=== PATIENT | male | born 1940 | race Caucasian/White ===

== ENCOUNTER 2024-11-28 06:49 | Inpatient (IN) | payer OTHER, MEDICARE ==
[2024-11-28] VITALS (11 sets, daily range): BP systolic 102–103; BP diastolic 51–56; PULSE 73–117; RESP 16–30; TEMP 97–97.8; O2SAT 87–98
[~2024-11-28] VITALS: Ht 180.3 cm; Wt 68.2 kg
--- NOTE | 2024-11-28 07:59 | ELECTROCARDIOGRAPH REPORT ---
[facility] Test Date: 2024-11-28 Test Time: 07:57:12 Pat Name: GEM NORIEGA Department: EMERGENCY ROOM Room: Gender: M Ct Scan Tech: SIMONA : 1940 Requested By: SILVIA RAVI Order Number: [id number] Reading MD: Measurements Intervals [place] Rate: 80 P: 0 WV: 0 QRS: 37 QRSD: 161 T: 206 QT: 440 QTc: 508 Interpretive Statements Afib/flut and V-paced complexes No further rhythm analysis attempted due to paced rhythm Left bundle branch block Please click the below link to view image of tracing.
--- NOTE | 2024-11-28 08:03 | Physician Documentation ---
History of Present Illness ~ Chief Complaint: Shortness of Breath Stated Complaint: XFER Time Seen by MD: 07:49 Mode of Arrival: Air Transport HPI 84-year-old male who presents to the emergency department in transfer from [facility], patient was initially evaluated at that hospital for shortness of breath was found to have a 77% saturation on room air, was treated with b reathing treatments and a non-rebreather which improved his oxygen, has a history of poor cardiac output with ejection fraction of 20% in the past also history of atrial fibrillation in multiple heart attacks. Patient was found to have an increasing troponin in transferred to this facility for treatment of acute pneumonia in the setting of increasing troponin, of note patient was chest pain-free the entire time, he is on Eliquis and per chart reviewed does not appear to have been treated with other anticoagulants. Patient is hard of hearing at baseline, and has been treated with baby aspirin. Timing/Duration: hours, resolved Severity: mild Activities at Onset: none Risk Factors: none History Of: CHF Prehospital Care: 02 Prior Episode/Exposure: occasional episodes Modifiying Factors: Improves with: oxygen Associated Symptoms: cough; Denies: chest pain Discomfort Quality/Severity: mild Chest Pain Location: substernal Cough Severity: Reports: non-productive cough Medication Reconciliation Allergies: Coded Allergies: No Known Allergies (Unverified , 11/28/24) Scheduled Apixaban (Eliquis), 1 TAB PO BID, (Reported) Bumetanide (Bumetanide), 1 TAB PO DAILY, (Reported) Gabapentin (Neurontin), 1 CAP PO HS, (Reported) Levothyroxine Sodium (Levothyroxine), 0.5 CAP PO DAILY, (Reported) Spironolactone (Spironolactone), 0.5 TAB PO DAILY, (Reported) [mintazapine], 30 MG PO DAILY, (Reported) Past Medical History Past Medical History: Congestive Heart Failure Review of Systems Constitutional: Reports: see HPI Eyes: Reports: no symptoms reported Cardiovascular: Reports: see HPI Physical Exam Vital Signs: Temperature: 98.1, Source: Oral, Heart Rate: 91, Respiratory Rate: 20, BP: 113/59, Pulse Oximetry: 91, Weight: 68.150 Pulse Oximetry Reflects: adequate oxygenation General Appearance: alert, no apparent distress Neck: normal inspection; No: tender EENT: normal ENT inspection, moist mucous membranes Ear: TMs normal Respiratory: crackles, wheezing Chest: no accessory muscle use, chest non-tender Cardiovascular: normal peripheral pulses, regular rate, rhythm, no edema, no JVD Gastrointestinal: normal palpation, non-tender, bowels sounds present Extremities: normal inspection; No: clubbing Skin: normal color, warm/dry; No: rash Neurologic: web applications developer II-XII nml as tested Psychiatric: appropriate Progress Results/Orders Results/Orders Orders - SILVIA RAVI DO Chest,Single View (11/28/24 07:53) Page Hospitalist (11/28/24 09:29) Fill Out Med Reconciliation (11/28/24 09:29) Heparin 25,000 Unit/250ml Bag (Heparin 2 (11/28/24 09:45) Heparin 10,000 Unit/Ml 1ml (Heparin 10,0 (11/28/24 09:45) Completed Orders - SILVIA RAVI DO 15 Lead Ekg (11/28/24 ) Hs Troponin I W Calculations (11/28/24 07:53) Chest,Single View (11/28/24 07:53) Cbc/Diff (11/28/24 07:53) CMP (11/28/24 07:53) Heparin Drip Acs*Rph-To-Dose* (Heparin D (11/28/24 09:30) Cardiac Ptt (11/28/24 09:39) Heparin 10,000 Unit/Ml 1ml (Heparin 10,0 (11/28/24 09:45) Message To Nursing (11/28/24 09:50) Vital Signs 11/28/24 11/28/24 11/28/24 11/28/24 07:01 07:12 07:59 08:49 Temp 98.1 98.1 98.1 Pulse 91 77 87 Resp 20 20 33 34 B/P (MAP) 113/59 113/55 (74) 122/58 (79) Pulse Ox 91 97 94 O2 Flow Rate 2.0 2.0 11/28/24 09:45 Temp 98.1 Pulse 82 Resp 20 B/P (MAP) 120/54 (76) Pulse Ox 96 O2 Flow Rate 2.0 Laboratory Tests Test 11/28/24 08:26 White Blood Count 7.6 Red Blood Count 3.69 L Hemoglobin 10.8 L Hematocrit 32.8 L Mean Corpuscular Volume 88.9 Mean Corpuscular Hemoglobin 29.4 Mean Corpuscular Hemoglobin Concent 33.1 Red Cell Distribution Width 16.4 H Platelet Count 131 L Mean Platelet Volume 7.5 Neutrophils (%) (Auto) 86.8 H Lymphocytes (%) (Auto) 4.6 L Monocytes (%) (Auto) 8.3 Eosinophils (%) (Auto) 0 Basophils (%) (Auto) 0.3 Neutrophils # (Auto) 6.6 Lymphocytes # (Auto) 0.3 L Monocytes # (Auto) 0.6 Eosinophils # (Auto) 0.0 Basophils # (Auto) 0.0 CBC Comment Sodium Level 150 H Potassium Level 3.4 L Chloride Level 112 H Carbon Dioxide Level 26.3 Anion Gap 12 Blood Urea Nitrogen 22 H Creatinine 1.18 H Estimated GFR/1.73 m2 59 BUN/Creatinine Ratio 18.6 Glucose Level 115 H Calcium Level 7.8 L Total Bilirubin 0.7 Aspartate Amino Transf (AST/SGOT) 18 Alanine Aminotransferase (ALT/SGPT) 25 Alkaline Phosphatase 69 Troponin I High Sensitivity 372 *H Total Protein 6.5 Albumin 3.3 L Globulin 3.2 Albumin/Globulin Ratio 1.0 L Chemistry Comments EKG/XRAY/CT/US/VASC/MRI EKG : Additional Comment Atrial fibrillation, normal axis rate of 75, low voltage, T-wave abnormalities in inferior and lateral leads, left bundle branch block, no change from prior EKG. Abnormal EKG. Chest X-Ray : Additional Comments [place] [address] DIAGNOSTIC RADIOLOGY Patient: GEM NORIEGA Medical Record: [id number] [facility] : 1940, Age: 84 Sex: Male Location: ER Patient Status: REG ER Service Date/Time: 11/28/24752 Ordering Physician: SILVIA RAVI DO Exam: CHEST,SINGLE VIEW EXAM: DI CHEST,SINGLE VIEW Indication: CP Technique: Single frontal view of the chest was obtained Comparison: None FINDINGS: Lines and Tubes: Cardiac pacemaker projects over left chest wall. Lungs: Right lower lung opacity. Pleura: Small left pleural effusion. No pneumothorax. Cardiomediastinal contours: Cardiomegaly. Vascular stent projects over the mediastinum. Bones: No acute osseous abnormality. IMPRESSION: Right lower lung opacity may reflect pneumonia. Electronically Signed by:REKHA ALMODOVAR MD Date & Time: 11/28/24838 Dictated by: REKHA ALMODOVAR MD Dictation date and time: 11/28/24818 Primary Care Provider: NO PRIMARY CARE PROVIDER cc: SILVIA RAVI DO ~ Heart Score: Heart Score Response (Comments) Value History Slightly Suspicious 0 EKG Repolarization Disturb 1 Age >65 2 Risk Factors 1 or 2 risk factors 1 Troponin >3 x's Normal limit 2 Total 6 Medical Decision Making Additional info obtained from: old records Findings EKG from [facility] shows AFib with a rapid ventricular rate low voltage, rate was 108, normal axis, T-wave inversions in inferior and lateral leads, abnormal EKG prior to arrival, labs were reviewed troponins were elevated they high sensitive troponin of 73 incidentally patient was also anemic with a hemoglobin 11.4 dehydrated with elevated sodium and chloride with a creatinine of 1.01 Patient has pneumonia was treated with Rocephin and azithromycin prior to arrival to the emergency department. Differential Dx:Considerations: Include: asthma, bronchitis, cardiogenic shock, CHF, COPD, pneumonia, pneumonitis, pulmonary embolism, respiratory distress, respiratory failure Departure Disposition: ADMITTED INPATIENT Admitted to Inpatient Unit: to hospitalist Impression: Primary Impression: Pneumonia Additional Impression: NSTEMI (non-ST elevated myocardial infarction) Condition: Guarded Referrals: NO PRIMARY CARE PROVIDER (PCP) Critical Care Note Total Time (mins): 35 Critical Care Note Critical care time exclusive of all other billable procedures, critical care time spent managing impending cardiovascular collapse in the setting of the acute non ST-elevation AR. Signature Scribe Signature: None Attestation: Dictated by myself SILVIA RAVI DO Nov 28, 2024 08:03
[2024-11-28 08:38] LABS: BASOPHILS % (AUTO) 0.3 % (0-1); EOSINOPHILS % (AUTO) 0 % (0-6); HEMATOCRIT 32.8 % (42.0-52.0); HEMOGLOBIN 10.8 g/dl (14.0-17.9); LYMPHOCYTES # (AUTO) 0.3 X10'3 (1.1-4.8); LYMPHOCYTES % (AUTO) 4.6 % (21-51); MEAN CORPUSCULAR HEMOGLOBIN 29.4 PG (27.0-31.0); MEAN CORPUSCULAR HGB CONC 33.1 g/dL (33.0-36.5); MEAN CORPUSCULAR VOLUME 88.9 FL (78-98); MEAN PLATELET VOLUME 7.5 FL (7.4-10.4); MONOCYTES # (AUTO) 0.6 X10'3 (0-0.9); MONOCYTES % (AUTO) 8.3 % (2-12); NEUTROPHILS # (AUTO) 6.6 X10'3 (1.8-7.7); NEUTROPHILS % (AUTO) 86.8 % (42-75); PLATELET COUNT 131 X10'3 (140-440); RED BLOOD COUNT 3.69 X10'6 (4.70-6.10); RED CELL DISTRIBUTION WIDTH 16.4 % (11.5-14.5); WHITE BLOOD COUNT 7.6 X10'3 (4.5-11.0)
--- NOTE | 2024-11-28 08:41 | RADIOLOGY REPORT ---
EXAM: DI CHEST,SINGLE VIEW Indication: CP Technique: Single frontal view of the chest was obtained Comparison: None FINDINGS: Lines and Tubes: Cardiac pacemaker projects over left chest wall. Lungs: Right lower lung opacity. Pleura: Small left pleural effusion. No pneumothorax. Cardiomediastinal contours: Cardiomegaly. Vascular stent projects over the mediastinum. Bones: No acute osseous abnormality. IMPRESSION: Right lower lung opacity may reflect pneumonia.
[2024-11-28 09:02] LABS: ALANINE AMINOTRANSFERASE 25 U/L (12-78); ALBUMIN 3.3 G/DL (3.4-5.0); ALKALINE PHOSPHATASE 69 IU/L (46-116); ANION GAP 12 (8-16); ASPARTATE AMINO TRANSFERASE 18 U/L (10-37); BILIRUBIN,TOTAL 0.7 MG/DL (0.1-1.0); BLOOD UREA NITROGEN 22 MG/DL (7-18); BUN/CREATININE RATIO 18.6 (10.0-20.0); CALCIUM 7.8 MG/DL (8.5-10.1); CHLORIDE 112 MMOL/L (99-107); CREATININE 1.18 MG/DL (0.60-1.10); GLUCOSE 115 MG/DL (70-104); POTASSIUM 3.4 MMOL/L (3.5-5.1); SODIUM 150 MMOL/L (135-145); TOTAL CARBON DIOXIDE 26.3 MMOL/L (24-32); TOTAL PROTEIN 6.5 G/DL (6.4-8.2); eCRCL 45 ML/MIN; eGFR 59 ML/MIN
[2024-11-28] MEDS ORDERED: magnesium sulf-water 4G/100mL 100 ML IV PRN (09:40)
[2024-11-28] MEDS ORDERED: mag hydrox/Alum hydrox/simeth 30ml oral suspension PO PRN (09:40)
[2024-11-28] MEDS ORDERED: morphine 2 MG/ML inj. syringe IV PRN ×2 (09:40)
[2024-11-28] MEDS ORDERED: ondansetron/PF 4mg/2ml inj IV PRN (09:40)
[2024-11-28] MEDS ORDERED: magnesium Cl slow-release 64mg tablet PO PRN (09:40)
[2024-11-28] MEDS ORDERED: HYDROcodone/acetaminophen 5mg/325mg tablet PO PRN (09:40)
[2024-11-28] MEDS ORDERED: magnesium hydroxide 30ml (MOM) UD suspension PO PRN (09:40)
[2024-11-28] MEDS ORDERED: acetaminophen 325mg tablet PO PRN (09:40)
[2024-11-28] MEDS ORDERED: magnesium sulf-water 2g/50mL 50 ML IV PRN (09:40)
[2024-11-28] MEDS ORDERED: potassium Cl 20 mEq SR tablet PO PRN (09:40)
[2024-11-28] MEDS ORDERED: ipratropium/albuterol 3ml nebule NEB PRN (09:40)
[2024-11-28] MEDS ORDERED: HYDROcodone/acetaminophen 10/325mg tab PO PRN (09:40)
[2024-11-28] MEDS: CefTRIAXone/D5W-Rocephin 1gm 50 ML IV SCH (10:07)
[2024-11-28] MEDS: azithromycin/NS 500mg/250ml 250 ML IV SCH (10:09)
[2024-11-28] MEDS: heparin 10,000 units/1 ML INJ IV ONE (10:15)
--- NOTE | 2024-11-28 10:17 | ELECTROCARDIOGRAPH REPORT ---
[facility] Test Date: 2024-11-28 Test Time: 07:58:39 Pat Name: GEM NORIEGA Department: EMERGENCY ROOM Room: ED 1 1 Gender: M Welfare Analyst: SIMONA : 1940 Requested By: DOROTA BROWN Order Number: [id number] Reading MD: Measurements Intervals [place] Rate: 75 P: 0 VT: 0 QRS: 31 QRSD: 163 T: 242 QT: 445 QTc: 498 Interpretive Statements Atrial fibrillation Left bundle branch block Please click the below link to view image of tracing.
[2024-11-28] MEDS: MESSAGE TO NURSING IV ONE ×2 (10:18→17:25)
[2024-11-28] MEDS: HEPARIN DRIP-CARDIAC**PHARMACIST-TO-DOSE IV ONE (10:18)
[2024-11-28] MEDS: heparin 25,000 UNIT/250ml bag 250 ML IV PRN (10:18)
[2024-11-28 10:33] LABS: HEMOGLOBIN A1C 5.1 % (4.5-6.2)
[2024-11-28 10:38] LABS: INR 1.5 INR; PROTHROMBIN TIME 14.8 SECONDS (9.0-12.0)
[2024-11-28 10:58] LABS: MAGNESIUM 1.9 MG/DL (1.5-2.4); POTASSIUM 3.9 MMOL/L (3.5-5.1)
[2024-11-28 11:20] LABS: BILIRUBIN,URINE SMALL (Neg); CLARITY,URINE CLEAR (Clear); COLOR,URINE YELLOW (Yellow); GLUCOSE, URINE NEGATIVE (Neg); KETONES,URINE NEGATIVE (Neg); LEUKOCYTE ESTERASE ,URINE NEGATIVE (Neg); NITRITES, URINE NEGATIVE (Neg); OCCULT BLOOD,URINE NEGATIVE (Neg); PH,URINE 5.5 (4.8-8.0); PROTEIN,URINE TRACE mg/dl (Neg); UROBILINOGEN,URINE 0.2 E.U/dL (0.2-1.0)
[2024-11-28] MEDS: ipratropium/albuterol 3ml nebule NEB SCH (11:24)
[2024-11-28 11:27] LABS: UA COLLECTION TYPE CLN CATCH MIDSTREAM
[2024-11-28 11:38] LABS: BACTERIA,URINE FEW /HPF (Neg); MUCUS STRANDS MODERATE /LPF (Neg); RBC,URINE NONE SEEN /HPF (0-2); SQUAMOUS EPITHELIAL CELL,UR FEW /LPF (FEW); TRANSITIONAL EPI CELLS,URINE FEW /HPF; WBC,URINE 0-4 /HPF (0-4)
[2024-11-28 11:39] LABS: CAL OXALATE CRYSTALS 3+ /HPF (NEGATIVE); HYALINE CASTS 0-3 /LPF (NEGATIVE)
[2024-11-28] MEDS: furosemide 40mg/4ml inj IV SCH (12:42)
--- NOTE | 2024-11-28 14:41 | RADIOLOGY REPORT ---
Exam: CT CT CHEST ABDOMEN PELVIS History: Pneumonia, pancreatic cancer Comparison Study: None Technique: Multidetector spiral CT of the chest, abdomen and pelvis was performed from lower neck to pubic symphysis. Intravenous contrast was administered during this examination. Portal venous imagin g was obtained. Axial, coronal and sagittal multiplanar reformats were performed by the technologist on a separate workstation. Radiation Dose : 1. Chest/Abdomen/Pelvis: CTDIvol 26.7 mGy, DLP 2240.9 mGy*cm. Findings: Lower neck: Left chest wall pacemaker. Small volume debris and mild thickening of the distal esophagus. Lungs: Multifocal airspace disease. Left upper lobe scarring may represent posttreatment related larkin ge. Heart/Vascular Structures: Cardiomegaly. Coronary artery calcifications. Vascular calcifications of t he aorta. Lymph Nodes: No adenopathy Pleura: Small right and small to moderate left pleural effusion. Liver: The liver is normal in size. No focal lesions. Normal hepatic vascular enhancement. Gallbladder and Biliary Tree: Unremarkable Spleen: Unremarkable Pancreas: The pancreas is normal in appearance without focal lesions or abnormal enhancement. Adrenal Glands: Unremarkable Kidneys: Kidneys demonstrate normal symmetric enhancement without focal lesions, calculi or hydroneph rosis. Bladder: Unremarkable Bowel: The stomach is grossly normal in appearance. Small bowel and colon are normal in caliber and d istribution. The appendix is not visualized; however, no secondary findings of acute appendicitis isidra ntified. Ascites: Absent Lymphadenopathy: No mesenteric, retroperitoneal or periportal lymphadenopathy. Abdominal Wall and Mesentery: Unremarkable. Vasculature: The visualized abdominal aorta is normal in size and caliber. There is calcified atheros clerotic plaque involving the aorta and its branches. Abdominal and pelvic vessels demonstrate normal enhancement. Pelvic Organs: Prostatectomy. Musculoskeletal: No aggressive focal bony lesions, acute fractures or dislocation. Degenerative jesus es of the spine. Osteopenia. IMPRESSION: Multifocal airspace disease. Left upper lobe scarring may represent posttreatment related change. Cardiomegaly. Small right and small to moderate left pleural effusion. Small volume debris and mild thickening of the distal esophagus.
--- NOTE | 2024-11-28 17:56 | CARDIOLOGY REPORT ---
APPROVED REPORT EXAM: Comprehensive 2D, Doppler, and color-flow Echocardiogram. Patient Location: ED1 Blood Pressure: 106/58 mmHg Heart Rate: 70 bpm Rhythm: Paced Indications Chest Pain Troponin 372 AFIB 29 mm TAVR 02/2023 Stent x 1 02/2023 [place] [facility] [place] [facility] No previous echo at [facility] Known reduced EF 2D Dimensions LA Diam4.6 cm IVSd 1.2 (0.7-1.1cm) LVDd 5.1 cm PWd 0.9 (0.7-1.1cm) IVSs 1.4 (0.8-1.2cm) LVDs 4.6 (2.5-4.0cm) Aortic Root(2D) 2.9 cm PWs 1.3 (0.8-1.2cm) LVOT Diameter 2.90 (1.8-2.4cm) LVEF(%) 24.6 (>50%) IVC 17.14 mmFS (%) 11.4 % SV 30.9 ml CO 2.6 L/min M-Mode Dimensions MV EPSS 1.6 (<0.5cm) Aortic Valve AoV Peak Eddy. 202.6 cm/s AoV VTI 36.0 cm AO Peak GR. 16.4 mmHg AO Mean GR. 10 mmHg LVOT VTI 22.70 cm LVOT Peak Eddy. 127.8 cm/s ANGELA(VTI)/BSA 4.15 cm2/m2 ANGELA (VTI) 4.15 cm2 Mitral Valve MV E Velocity 95.5 cm/s MV Peak Gr. 5 mmHg MV DECEL TIME 192 ms MV PHT 56 ms MVA (PHT) 3.93 cm2 MV XOtb535.5 cm/s Tricuspid Valve TR P. Velocity 334 cm/s RAP ESTIMATE 10 mmHg TR Peak Gr. 45 mmHg RVSP 55 mmHg LEFT VENTRICLE LV is normal in size with mild septal hypertrophy. Overall systolic function is severely reduced. Abn ormal septal motion. LVEF is 25%. RIGHT VENTRICLE RV is normal size and function. Pacemaker wire in right heart. RVSP is estimated at 55 mmHG. ATRIA Left atrium is moderately dilated. AORTIC VALVE 29 mm bioprosthetic TAVR appears well seated. ANGELA is measured at 4.15 cmsq. Peak/mean gradients of 16 /10 mmHG. Peak velocity is measured at 2.03 m/sec. Trace paravalvular leak noted at 8 oclock PSAX TTE . MITRAL VALVE MV is thickened with mild annular calcification and no stenosis. Small mobile echogenic mass (Loop 55 -58), appears to be attached to the anterior MV leaflet. Possible degenerative valve vs vegetation, r eccomend clinical correlation. Trace to mild mitral regurgitation. TRICUSPID VALVE The tricuspid valve is normal in structure. Mild to moderate tricuspid regurgitation. PULMONIC VALVE The pulmonary valve is normal in structure. Trace pulmonic regurgitation. GREAT VESSELS The aortic root is normal in size. The IVC is normal in size and collapses >50% with inspiration. PERICARDIUM There is no pericardial effusion. Pleural effusion. Other Information Study Quality: Adequate Conclusion LV is normal in size with mild septal hypertrophy. Overall systolic function is severely reduced. Abn ormal septal motion. LVEF is 25%. RV is normal size and function. Pacemaker wire in right heart. RVSP is estimated at 55 mmHG. Left atrium is moderately dilated. 29 mm bioprosthetic TAVR appears well seated. ANGELA is measured at 4.15 cmsq. Peak/mean gradients of 16 /10 mmHG. Peak velocity is measured at 2.03 m/sec. Trace paravalvular leak noted at 8 oclock PSAX TTE . MV is thickened with mild annular calcification and no stenosis. Small mobile echogenic mass (Loop 55 -58), appears to be attached to the anterior MV leaflet. Possible degenerative valve vs vegetation, r eccomend clinical correlation. Trace to mild mitral regurgitation. The tricuspid valve is normal in structure. Mild to moderate tricuspid regurgitation. The pulmonary valve is normal in structure. Trace pulmonic regurgitation. There is no pericardial effusion.
--- NOTE | 2024-11-28 18:25 | HISTORY AND PHYSICAL-Residence ---
History & Physical Providers to CC Resident Creating Document: URIAH LOUIS, RES ~ History of Present Illness Reason for Admit\Complaint: SOB, elevated troponins History of Present Illness This is a 84-year-old male with a history of CAD, atrial fibrillation, valvular heart disease s/p TAVR, lung cancer s/p left lobectomy, prostate cancer s/p radiation therapy, heart failure with severely reduced ejection fraction was transferred from ED of [facility] for management of NSTEMI and pneumonia. Patient is extremely hard of hearing and a poor historian and does not want to be disturbed. Per report from [facility], patient was having hot dogs at noon after which he became sick. He was having trouble breathing throughout the evening and had thick sputum which the patient describes as a gal of sputum. He was saturating at 77% on room air when his daughter was a ICU nurse who lives close to the patient checked his saturation. She was concerned and called EMS. Patient denies any chest pain would has cough with sputum production. 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 He also has a history of recurrent pneumonias in the past. ED course: Troponins were up trending from 80, 100 to 300 at [facility]. After transferred to [facility] ED, he was started on heparin drip. EKG shows ST depressions in V5 V6 lateral leads. Allergies: Coded Allergies: No Known Allergies (Unverified , 11/28/24) Past Medical History Past Medical History CAD, atrial fibrillation, valvular heart disease s/p TAVR, lung cancer s/p left lobectomy, prostate cancer s/p radiation therapy, heart failure with severely reduced ejection fraction Past Surgical History Surgical History Comment TAVR, stent placement, lobectomy of lung, prostatectomy Past Social History Social History Comment Smoked one pack per day for about 60 years, quit 10 years ago. He was also exposed to 2nd hand smoke after quitting cigarettes. Quit alcohol two years ago used to drink 1-2 drinks previously every night. Denies drug use. He lives in an RV beside his daughter house who is a ICU nurse ROS ROS Reviewed and negative except for the pertinent positives in HPI Constitutional: Reports: see HPI Eyes: Reports: no symptoms reported Cardiovascular: Reports: see HPI Exam Vitals: Vital Signs Date Time Temp Pulse Resp B/P (MAP) Pulse Ox O2 Delivery O2 Flow Rate FiO2 11/28/24 16:54 94 11/28/24 16:47 18 Room Air 0.0 11/28/24 16:40 95 24 11/28/24 14:37 98.1 109/54 (72) General: Frail-ill appearing, elderly male, awake, alert and oriented, very hard of hearing HEENT: Atraumatic, normocephalic, EOMI, anicteric sclera B; pink conjunctiva; PERRLA, normal oropharynx, moist oral and nasal mucosa. Tympanic membrane , nose , throat clear. Neck: Trachea midline. Supple, full range of motion, no JVD, bruit , hepatojugular reflex , lymphadenopathy or masses, or other lesions Chest: irregular rhythm, regular rate no murmurs, rubs, or gallops. Normal S1 and S2, no S3 noticed. PMI is normal. Respiratory: Decreased breath sounds in the right lower lobe. no tachypnea; mild wheezing ,rub or rales, or crackles. Chest wall is symmetric and without deformity. No signs of trauma. Chest wall is nontender. No signs of respiratory distress. Resonance is normal upon percussion bilaterally. Gastrointestinal: Abdomen symmetric, non-distended, soft, non-tender, normal bowel sounds x4 quadrant, normoactive, no hepatosplenomegaly , no masses , no bruit, no flank pain bilaterally. No voluntary guarding, rebound, or rigidity. No tenderness to percussion. No pulsatile masses. Equal femoral pulses. No Klein's sign or McBurney point tenderness. Back; no CVA tenderness bilaterally, no deformities. Neck and back are without deformity as well. No tenderness noted on palpation of the spinous processes. Spinous processes are midline. Cervical, thoracic, and lumbar paraspinal muscles are not tender and are without spasm. : normal external genitalia, without lesions, swelling, masses or tenderness. Musculoskeletal: Extremities, normal range of motion, non-tender, muscle strength 5/5 x 4. Negative Homans signs bilaterally on lower extremity. Distal pulses full symmetrical, no clubbing, cyanosis , edema. Neurological: Speech is clear, alert, and oriented x 4. No motor or sensory deficit, deep tendon reflexes normal, cerebellar intact. Cranial nerves II-XII intact. Psych: Alert and or appropriate, normal affect. Vascular: Good distal pulses, which are equal x4; capillary refill less than 2 seconds. Skin: Warm, dry, no pallor, no rash or petechiae. Diagnostic Data Last Recorded Lab Results: 11/28/24 0826 11/28/24 1005 Diagnostic Data: Laboratory Tests Test 11/28/24 10:05 11/28/24 16:15 Prothrombin Time 14.8 SECONDS (9.0-12.0) H INR International Normalized Ratio 1.5 INR APTT (Heparin Protocol) 84 SECONDS (45-60) H Coagulation Comments Advance Care Planning Advanced Care plannin - 30 Minutes (I spent a total of 17 minutes on reviewing various resuscitative measures/ ACP with the patient at the time of admission. The patient has decided on a full code status) Additional Plan Acute hypoxemic respiratory failure Right lower lobe pneumonia Sepsis secondary to above Can not rule out aspiration pneumonia CT scan shows Multifocal airspace disease. Patient had a fever at home, no recordings in hospital. Started on ceftriaxone and azithromycin. Started on IV Solu-Medrol 40 mg b.i.d. Left upper lobe scarring may represent posttreatment related change. Cardiomegaly. Small right and small to moderate left pleural effusion. Small volume debris and mild thickening of the distal esophagus. NPO until he passes swallow test. Up trending troponin Likely type [address] Depression in V5 V6 Started on heparin drip. Continue trending serial troponins. Consult Cardiology in the a.m if troponins continue trending upwards. First troponin and 300s, 2nd one is 400s. ST changes may be related to previous OR. patient denies any chest pain. COPD Started on duo nebs q.2h p.r.n. and q.4 scheduled. RT notified. Antibiotics. Acute on chronic CHF with reduced ejection fraction ? Infective endocarditis Echocardiogram shows Overall systolic function is severely reduced. Abnormal septal motion. LVEF is 25%. RV is normal size and function. Pacemaker wire in right heart. RVSP is estimated at 55 mmHG. Left atrium is moderately dilated. Trace paravalvular leak noted at 8 oclock PSAX TTE.MV Small mobile echogenic mass (Loop 55-58), appears to be attached to the anterior MV leaflet. Possible degenerative valve vs vegetation, reccomend clinical correlation. Trace to mild mitral regurgitation. Consulted ID Dr. Cortes to rule out infectious endocarditis. Blood cultures ordered. Follow up. Consult Cardiology in the a.m. Started on IV Lasix 40 mg daily scheduled. Continue bisoprolol, bumetanide, spironolactone GDMT home medication. Jardiance 10 mg p.o. daily and gradually lisinopril 5 mg if blood pressures are not soft. He is currently on IV and oral diuretics. Discontinue IV diuretic after SOB resolves. Atrial fibrillation with RVR EKG at [facility] showed AFib with RVR with a heart rate in 140s and ST depressions. He received amiodarone and heart rate converted. Restarted home medication bisoprolol 2.5 mg daily. Restart Eliquis home medication once heparin drip is discontinued History of lung cancer s/p lobectomy History of pancreatic cyst History of prostate cancer s/p radiation and prostatectomy History of hypothyroidism Restarted home medication levothyroxine Code Status: Full code DVT Prophylaxis: Heparin Analgesia/Sedation: [place], morphine p.r.n. Lines/Tubes: PIV Gi Prophylaxis: None Nutrition: NPO till the passes swallow test PT: Yes Prognosis: Guarded Disposition: Admit to PCU with telemetry monitoring. Pending ID and Cardiology recommendation Uriah Magana MD Internal Medicine Resident PGY-1 Date of Service: Nov 28, 2024 Billing Provider: DOROTA BROWN MD,URIAH MAGANA, RES Nov 28, 2024 18:25
[2024-11-28] MEDS ORDERED: BUME0.5T5 PO (18:38)
[2024-11-28] MEDS ORDERED: APIX5TAB5 PO (18:39)
[2024-11-28] MEDS ORDERED: SPIR25TA5 PO (18:39)
[2024-11-28] MEDS ORDERED: LEVO25CA5 PO (18:45)
[2024-11-28] MEDS ORDERED: [UNRECOGNIZED DRUG - OTHER] PO (18:45)
[2024-11-28] MEDS ORDERED: GABA300C PO (18:45)
[2024-11-28] MEDS ORDERED: BISO5TAB PO (18:48)
[2024-11-28] MEDS ORDERED: APIXABAN PO SCH (20:00)
[2024-11-28] MEDS: K and/or MAG REPLACEMENT MC SCH (20:00)
[2024-11-28] MEDS: docusate sod 100mg capsule PO SCH (20:00)
[2024-11-28] MEDS: gabapentin 300mg capsule PO SCH (20:30)
[2024-11-28] MEDS: mirtazapine 15mg tablet PO SCH (20:30)
[2024-11-28] MEDS: methylPREDNISolone sod succ/PF 40mg inj. IV SCH (20:34)
[2024-11-28] MEDS: potassium Cl 20 mEq SR tablet PO PRN (20:35)
[2024-11-29] VITALS (27 sets, daily range): BP systolic 99–119; BP diastolic 45–76; PULSE 82–114; RESP 16–25; TEMP 97.2–98.1; O2SAT 72–100
[2024-11-29] MEDS: MESSAGE TO NURSING IV ONE ×3 (01:10→15:44)
[2024-11-29 06:28] LABS: BASOPHILS % (AUTO) 0.1 % (0-1); EOSINOPHILS % (AUTO) 0.1 % (0-6); HEMATOCRIT 31.7 % (42.0-52.0); HEMOGLOBIN 10.8 g/dl (14.0-17.9); LYMPHOCYTES # (AUTO) 0.1 X10'3 (1.1-4.8); LYMPHOCYTES % (AUTO) 2.6 % (21-51); MEAN CORPUSCULAR HEMOGLOBIN 29.6 PG (27.0-31.0); MEAN CORPUSCULAR VOLUME 87.1 FL (78-98); MONOCYTES # (AUTO) 0.4 X10'3 (0-0.9); MONOCYTES % (AUTO) 7.5 % (2-12); NEUTROPHILS # (AUTO) 4.9 X10'3 (1.8-7.7); NEUTROPHILS % (AUTO) 89.7 % (42-75); PLATELET COUNT 131 X10'3 (140-440); RED BLOOD COUNT 3.64 X10'6 (4.70-6.10); RED CELL DISTRIBUTION WIDTH 15.9 % (11.5-14.5); WHITE BLOOD COUNT 5.5 X10'3 (4.5-11.0)
[2024-11-29] MEDS: levoTHYROXINE 25mcg tablet PO SCH (07:11)
[2024-11-29] MEDS: bumetanide 1mg tablet PO SCH (07:13)
[2024-11-29] MEDS: spironolactone 25 MG tablet PO SCH (07:14)
[2024-11-29 07:17] LABS: ALANINE AMINOTRANSFERASE 18 U/L (12-78); ALBUMIN 3.3 G/DL (3.4-5.0); ALBUMIN/GLOBULIN RATIO 0.9 (1.1-1.5); ALKALINE PHOSPHATASE 66 IU/L (46-116); ANION GAP 10 (8-16); ASPARTATE AMINO TRANSFERASE 18 U/L (10-37); BILIRUBIN,TOTAL 0.6 MG/DL (0.1-1.0); BLOOD UREA NITROGEN 27 MG/DL (7-18); BUN/CREATININE RATIO 24.5 (10.0-20.0); CALCIUM 8.6 MG/DL (8.5-10.1); CHLORIDE 112 MMOL/L (99-107); CHOL/HDL RATIO 2.3 (0.00-4.99); CHOLESTEROL 123 MG/DL (0-200); GLUCOSE 131 MG/DL (70-104); HDL CHOLESTEROL 54 MG/DL (35-60); LDL CHOLESTEROL 50 MG/DL (50-100); MAGNESIUM 1.9 MG/DL (1.5-2.4); POTASSIUM 3.1 MMOL/L (3.5-5.1); SODIUM 150 MMOL/L (135-145); TOTAL CARBON DIOXIDE 27.8 MMOL/L (24-32); TOTAL PROTEIN 7.1 G/DL (6.4-8.2); TRIGLYCERIDES 56 MG/DL (20-135); eCRCL 48 ML/MIN; eGFR 64 ML/MIN
[2024-11-29] MEDS: EMPAGLIFLOZIN 10 MG TABLET PO SCH (07:18)
[2024-11-29] MEDS: heparin 10,000 units/1 ML INJ IV PRN (07:55)
[2024-11-29] MEDS: potassium Cl 40MEQ/1/2NS 520ml 520 ML IV PRN (10:27)
[2024-11-29] MEDS: metoprolol succinate 25mg (24-HOUR) SR. Tablet PO SCH (10:27)
--- NOTE | 2024-11-29 12:32 | RADIOLOGY REPORT ---
CHEST RADIOGRAPH Indication: sob Technique: Single frontal view of the chest was obtained COMPARISON: DI CHEST,SINGLE VIEW on DOS: 11/28/24 FINDINGS: Lines and Tubes: Pacemaker wire is intact. Aortic stent visualized. Lungs: Patchy atelectasis/ infiltrate right mid to lower lung field medially. Pleura: Effacement left hemidiaphragm. Small left pleural effusion may be present. No pneumothorax. Cardiomediastinal contours: Mild cardiomegaly. Bones: Unremarkable IMPRESSION: 1. Possible small left pleural effusionMild cardiomegaly. 2. Patchy atelectasis/ infiltrate right lung base
[2024-11-29] MEDS: albuterol 2.5 MG/3 ML nebule NEB ONE (12:43)
--- NOTE | 2024-11-29 19:46 | PROGRESS NOTE- Residence ---
Progress Note - Resident Providers to CC Resident Creating Document: CARY MINOR STANFORDKELLYABEBE, RES ~ Antibiotic Timeout Antibiotic Ordered?: Yes Subjective The patient was seen and examined at bedside today. He has no new complaints. Later in the day, he started aspirating. Started him on aspiration precautions and NPO. He was evaluated by RT and was started on 10 L oxygen through high- flow nasal cannula. Objective Vital Signs Date Time Temp Pulse Resp B/P (MAP) Pulse Ox O2 Delivery O2 Flow Rate FiO2 11/29/24 16:29 102 18 High Flow Nasal Cannula 10.0 11/29/24 16:23 94 11/29/24 16:22 58 11/29/24 15:00 97.4 114/76 (89) Result Diagram: 11/29/24 0511/29/24 05 Elderly male, alert and oriented, not in acute distress, on 10 L oxygen through HF nasal cannula Head: Normocephalic with an atraumatic Eyes: Pupils- 3mm, reacting to light, conjunctiva- anicteric Nose and throat: No polyps, septum- normal, no mucosal ulcers Neck: Supple, no lymphadenopathy, no carotid bruit Respiratory: Tachypnea, coarse breath sounds bilaterally Cardiac: S1-S2 heard, rhythm irregular, no gallop/murmur Abdomen: non distended, no tenderness, no organomegaly, bowel sounds - heard Extremities: no clubbing, no pedal edema, no deformities, peripheral pulses - 2+ Skin: warm and dry, no rash, no purpura Neuro: No focal deficit, gross cranial nerve exam - normal Coagulation Studies Laboratory Tests Test 11/28/24 10:05 11/29/24 14:32 Prothrombin Time 14.8 SECONDS (9.0-12.0) H INR International Normalized Ratio 1.5 INR APTT (Heparin Protocol) 66 SECONDS (45-60) H Coagulation Comments Plan Plan Acute hypoxemic respiratory failure Right lower lobe pneumonia Sepsis secondary to above Can not rule out aspiration pneumonia Patient seemed to be aspirating when he was started on diet today. Aspiration precautions. NPO. Left upper lobe scarring may represent posttreatment related change. Cardiomegaly. Small right and small to moderate left pleural effusion. Small volume debris and mild thickening of the distal esophagus. Continue ceftriaxone and azithromycin. IV steroids 40 mg BID. Type 2 IL Continue heparin drip till 48 hours. Troponins downtrending. COPD Started on duo nebs q.2h p.r.n. and q.4 scheduled. RT notified. Antibiotics. Acute on chronic CHF with reduced ejection fraction ? Infective endocarditis Echocardiogram shows Overall systolic function is severely reduced. Abnormal septal motion. LVEF is 25%. RV is normal size and function. Pacemaker wire in right heart. RVSP is estimated at 55 mmHG. Left atrium is moderately dilated. Trace paravalvular leak noted at 8 oclock PSAX TTE.MV Small mobile echogenic mass (Loop 55-58), appears to be attached to the anterior MV leaflet. Possible degenerative valve vs vegetation, reccomend clinical correlation. Trace to mild mitral regurgitation. Awaiting recommendations from Dr. Cortes and Dr. Maxwell. Discontinued bumetanide as the patient appeared to be dry. Continue IV Lasix 40 mg daily scheduled. Atrial fibrillation with RVR EKG at [facility] showed AFib with RVR with a heart rate in 140s and ST depressions. He received amiodarone and heart rate converted. Restarted home medication bisoprolol 2.5 mg daily. Restart Eliquis home medication once heparin drip is discontinued History of lung cancer s/p lobectomy History of pancreatic cyst History of prostate cancer s/p radiation and prostatectomy History of hypothyroidism Restarted home medication levothyroxine Code Status: Full code DVT Prophylaxis: Heparin Analgesia/Sedation: [place], morphine p.r.n. Lines/Tubes: PIV Gi Prophylaxis: None Nutrition: NPO till the passes swallow test PT: Yes Prognosis: Guarded Disposition: Admit to PCU with telemetry monitoring. Pending ID and Cardiology recommendations. Cary Minor MD Internal Medicine Resident, PGY-1 Date of Service: Nov 29, 2024 Billing Provider: DOROTA BROWN MD,CARY MOORE, RES Nov 29, 2024 19:46
[2024-11-30] VITALS (17 sets, daily range): BP systolic 90–133; BP diastolic 55–80; PULSE 90–111; RESP 19–36; TEMP 97–97.8; O2SAT 88–98
[2024-11-30 06:32] LABS: BASOPHILS % (AUTO) 0 % (0-1); EOSINOPHILS % (AUTO) 0 % (0-6); HEMATOCRIT 31.5 % (42.0-52.0); HEMOGLOBIN 10.5 g/dl (14.0-17.9); LYMPHOCYTES # (AUTO) 0.1 X10'3 (1.1-4.8); LYMPHOCYTES % (AUTO) 1.6 % (21-51); MEAN CORPUSCULAR HEMOGLOBIN 29.5 PG (27.0-31.0); MEAN CORPUSCULAR HGB CONC 33.4 g/dL (33.0-36.5); MEAN CORPUSCULAR VOLUME 88.3 FL (78-98); MEAN PLATELET VOLUME 8.4 FL (7.4-10.4); MONOCYTES # (AUTO) 0.2 X10'3 (0-0.9); MONOCYTES % (AUTO) 4.5 % (2-12); NEUTROPHILS # (AUTO) 3.6 X10'3 (1.8-7.7); NEUTROPHILS % (AUTO) 93.9 % (42-75); PLATELET COUNT 148 X10'3 (140-440); RED BLOOD COUNT 3.57 X10'6 (4.70-6.10); WHITE BLOOD COUNT 3.9 X10'3 (4.5-11.0)
[2024-11-30 07:00] LABS: ALANINE AMINOTRANSFERASE 16 U/L (12-78); ALBUMIN 3.2 G/DL (3.4-5.0); ALBUMIN/GLOBULIN RATIO 0.8 (1.1-1.5); ALKALINE PHOSPHATASE 63 IU/L (46-116); ANION GAP 10 (8-16); ASPARTATE AMINO TRANSFERASE 17 U/L (10-37); BILIRUBIN,TOTAL 0.6 MG/DL (0.1-1.0); BLOOD UREA NITROGEN 34 MG/DL (7-18); BUN/CREATININE RATIO 31.5 (10.0-20.0); CALCIUM 8.7 MG/DL (8.5-10.1); CHLORIDE 112 MMOL/L (99-107); CREATININE 1.08 MG/DL (0.60-1.10); GLUCOSE 121 MG/DL (70-104); MAGNESIUM 2.1 MG/DL (1.5-2.4); POTASSIUM 3.6 MMOL/L (3.5-5.1); SODIUM 149 MMOL/L (135-145); TOTAL CARBON DIOXIDE 27.4 MMOL/L (24-32); TOTAL PROTEIN 7.2 G/DL (6.4-8.2); eCRCL 49 ML/MIN; eGFR 65 ML/MIN
[2024-11-30] MEDS: MESSAGE TO NURSING IV ONE (07:32)
[2024-11-30] MEDS: lisinopril 2.5mg tablet PO SCH (09:20)
[2024-11-30] MEDS ORDERED: hydrOXYzine 25 MG tablet PO PRN (12:10)
--- NOTE | 2024-11-30 12:22 | PROGRESS NOTE- Residence ---
Progress Note - Resident Providers to CC Resident Creating Document: URIAH LOUIS, TAYLOR ~ Antibiotic Timeout Antibiotic Ordered?: Yes Subjective The patient was seen and examined at bedside today. He has no new complaints, says he wants to go home. His Daughters are at the bedside. Consulted Cardiology, GI, Infectious diseases. Patient has possible one major (vegetations) and two minor criteria based on Murray's criteria. Dr. Neil Maxwell we will look at the echocardiogram and give his recommendations. Blood cultures are negative so far. NPO after midnight for possible endoscopy tomorrow to evaluate for esophageal wall thickening. Given the option of percussion vest. Patient also has a EF of 25% and may need life vest at discharge Objective Vital Signs Date Time Temp Pulse Resp B/P (MAP) Pulse Ox O2 Delivery O2 Flow Rate FiO2 11/30/24 09:21 100 11/30/24 08:43 22 Nasal Cannula 3.0 11/30/24 08:32 93 32 11/30/24 07:00 97.0 133/67 (89) Result Diagram: 11/30/24 0427 11/30/24 0427 General: Frail-ill appearing, elderly male, awake, alert and oriented, very hard of hearing HEENT: Atraumatic, normocephalic, EOMI, anicteric sclera B; pink conjunctiva; PERRLA, normal oropharynx, moist oral and nasal mucosa. Tympanic membrane , nose , throat clear. Neck: Trachea midline. Supple, full range of motion, no JVD, bruit , hepatojugular reflex , lymphadenopathy or masses, or other lesions Chest: irregular rhythm, regular rate no murmurs, rubs, or gallops. Normal S1 and S2, no S3 noticed. PMI is normal. Respiratory: Decreased breath sounds in the right lower lobe. no tachypnea; mild wheezing ,rub or rales, or crackles. Chest wall is symmetric and without deformity. No signs of trauma. Chest wall is nontender. No signs of respiratory distress. Resonance is normal upon percussion bilaterally. Gastrointestinal: Abdomen symmetric, non-distended, soft, non-tender, normal bowel sounds x4 quadrant, normoactive, no hepatosplenomegaly ,no masses , no bruit, no flank pain bilaterally. No voluntary guarding, rebound, or rigidity. No tenderness to percussion. No pulsatile masses. Equal femoral pulses. No Klein's sign or McBurney point tenderness. Back; no CVA tenderness bilaterally, no deformities. Neck and back are without deformity as well. No tenderness noted on palpation of the spinous processes. Spinous processes are midline. Cervical, thoracic, and lumbar paraspinal muscles are not tender and are without spasm. : normal external genitalia, without lesions, swelling, masses or tenderness. Musculoskeletal: Extremities, normal range of motion, non-tender, muscle strength 5/5 x 4. Negative Homans signs bilaterally on lower extremity. Distal pulses full symmetrical, no clubbing, cyanosis , edema. Neurological: Speech is clear, alert, and oriented x 4. No motor or sensory deficit, deep tendon reflexes normal, cerebellar intact. Cranial nerves II-XII intact. Psych: Alert and or appropriate, normal affect. Vascular: Good distal pulses, which are equal x4; capillary refill less than 2 seconds. Skin: Warm, dry, no pallor, no rash or petechiae. Coagulation Studies Laboratory Tests Test 11/28/24 10:05 11/30/24 05:28 Prothrombin Time 14.8 SECONDS (9.0-12.0) H INR International Normalized Ratio 1.5 INR APTT (Heparin Protocol) 39 SECONDS (45-60) L Coagulation Comments Assessment Assessment This is a 84-year-old male with a history of CAD, atrial fibrillation, valvular heart disease s/p TAVR, lung cancer s/p left lobectomy, prostate cancer s/p radiation therapy, heart failure with severely reduced ejection fraction was transferred from ED of [facility] for management of NSTEMI and pneumonia. Patient is extremely hard of hearing and a poor historian and does not want to be disturbed. Per report from [facility], patient was having hot dogs at noon after which he became sick. He was having trouble breathing throughout the evening and had thick sputum which the patient describes as a gal of sputum. He was saturating at 77% on room air when his daughter was a ICU nurse who lives close to the patient checked his saturation. She was concerned and called EMS. Patient denies any chest pain would has cough with sputum production. 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 He also has a history of recurrent pneumonias in the past. ED course: Troponins were up trending from 80, 100 to 300 at [facility]. After transferred to [facility] ED, he was started on heparin drip. EKG shows ST depressions in V5 V6 lateral leads. Plan Plan Acute hypoxemic respiratory failure Right lower lobe pneumonia Sepsis secondary to above Can not rule out aspiration pneumonia Patient seemed to be aspirating when he was started on diet today. Aspiration precautions. NPO. Pending speech therapy evaluation. Left upper lobe scarring may represent posttreatment related change. Cardiomegaly. Small right and small to moderate left pleural effusion. Small volume debris and mild thickening of the distal esophagus. Continue ceftriaxone and azithromycin. IV steroids 40 mg BID. Currently on 3 L oxygen, does not use any home oxygen. Type 2 HI Heparin drip stopped. Restarted Eliquis for anticoagulation due to atrial fibrillation. Troponins downtrending. COPD Started on duo nebs q.2h p.r.n. and q.4 scheduled. RT notified. Continue Antibiotics. Acute on chronic CHF with severely reduced ejection fraction ? Infective endocarditis Echocardiogram shows Overall systolic function is severely reduced. Abnormal septal motion. LVEF is 25%. RV is normal size and function. Pacemaker wire in right heart. RVSP is estimated at 55 mmHG. Left atrium is moderately dilated. Trace paravalvular leak noted at 8 oclock PSAX TTE.MV Small mobile echogenic mass (Loop 55-58), appears to be attached to the anterior MV leaflet. Possible degenerative valve vs vegetation, reccomend clinical correlation. Trace to mild mitral regurgitation. Awaiting recommendations from Dr. Cortes and Dr. Maxwell. Discontinued bumetanide as the patient appeared to be dry. Continue IV Lasix 40 mg daily scheduled. Continue GDMT. Advise LifeVest at discharge Atrial fibrillation with RVR EKG at [facility] showed AFib with RVR with a heart rate in 140s and ST depressions. He received amiodarone and heart rate converted. Restarted home medication bisoprolol 2.5 mg daily. Restart Eliquis home medication. History of lung cancer s/p lobectomy History of pancreatic cyst History of prostate cancer s/p radiation and prostatectomy History of hypothyroidism Restarted home medication levothyroxine Code Status: Full code DVT Prophylaxis: Heparin Analgesia/Sedation: [place], morphine p.r.n. Lines/Tubes: PIV Gi Prophylaxis: None Nutrition: NPO till the passes swallow test PT: Yes Prognosis: Guarded Disposition: Admit to PCU with telemetry monitoring. Pending endoscopy, ID and Cardiology recommendations. Uriah Magana MD Internal Medicine Resident, PGY-1 Date of Service: Nov 30, 2024 Billing Provider: SHANNON MARTINEZ MD,URIAH MAGANA, RES Nov 30, 2024 12:22
[2024-11-30] MEDS: dextrose 5%-normal saline 1,000 ML IV SCH (12:42)
[2024-11-30] MEDS: guaiFENesin ER 600mg tablet PO SCH (20:40)
[2024-11-30] MEDS: apixaban 5mg tablet PO SCH (20:40)
[2024-11-30] MEDS: QUEtiapine 25mg tablet PO SCH (20:40)
[2024-11-30] MEDS ORDERED: amiodarone/D5 360MG/200ML BAG 200 ML IV ONE (22:10)
[2024-11-30] MEDS ORDERED: morphine 4 MG/ML inj SYRINge ONE (22:40)
[2024-11-30] MEDS ORDERED: morphine 4 MG/ML inj SYRINge IV PRN (22:55)
[2024-11-30 23:29] LABS: ABG BASE EXCESS -1.4 mmol/L (-2.0-3.0); ABG OXYGEN SATURATION 43.9 % (94.0-98.0); ABG PCO2 (T) 126.4 mmHg (35.0-48.0); ABG PH (T) 7.047 (7.350-7.450); ALLEN'S TEST Modified; FCOHb 1.5 % (0.5-1.5); FHHb 55.1 % (0.0-5.0); FMetHb 0.3 % (0.0-1.5); FO2Hb 43.1 % (94.0-98.0); MODE NASAL CANNULA; TOTAL HEMOGLOBIN 16.3 G/dl (13.5-17.5)
--- NOTE | 2024-12-01 03:39 | Physician Documentation ---
History of Present Illness ~ Chief Complaint: Shortness of Breath Stated Complaint: XFER Mode of Arrival: Air Transport Exam Limitations: clinical condition HPI Code rah was called at 10:06 p.m.. I responded to find the patient receiving CPR and one epi and one bicarb have been pushed. Nurse found the patient in the wound have agonal respirations in in rapid atrial fibrillation. Patient went into PDA. CPR was initiated and one epi and one amp of bicarb was pushed prior to my arrival. CPR was continued. A 2nd and 3rd epi was pushed. Bag-mask ventilation was provided. Patient was prepped for intubation. 20 mg of etomidate pushed along with 100 mg of rocuronium. Patient was intubated without any complications. At 10:08 a.m. p.m. the patient was found to be in a wide complex tachycardia. Patient was defibrillated. Pulse was obtained. Patient transferred to the CCU. Medication Reconciliation Allergies: Coded Allergies: No Known Allergies (Unverified , 11/28/24) Scheduled Apixaban (Eliquis), 1 TAB PO BID, (Reported) Bisoprolol Fumarate (Bisoprolol Fumarate), 0.5 TAB PO DAILY, (Reported) Bumetanide (Bumetanide), 1 TAB PO DAILY, (Reported) Gabapentin (Neurontin), 1 CAP PO HS, (Reported) Levothyroxine Sodium (Levothyroxine), 0.5 CAP PO DAILY, (Reported) Spironolactone (Spironolactone), 0.5 TAB PO DAILY, (Reported) [mintazapine], 30 MG PO DAILY, (Reported) Past Medical History Past Medical History: Congestive Heart Failure Smoking Status: Former smoker Physical Exam Vital Signs: Temperature: 97.5, Source: Oral, Heart Rate: 109, Respiratory Rate: 22, BP: 118/61, Pulse Oximetry: 94, Weight: 68.150 Oxygen Flow Rate: 0.0 Procedures Intubation Intubation Time: 2205 Intubation Method: orotracheal Endotracheal Tube Size: 8.0 Medications: Etomidate, other (Rocuronium) ETT Confirmation: Ascultation, CO2 Detector, Direct Visualization, Condensation in ETT Breath Sounds After Intubation: equal Intubation Complications: no complications Post Intubation Xray: No Progress Results/Orders Results/Orders Vital Signs 11/28/24 11/28/24 11/28/24/13/25 07:01 07:12 07:59 08:49 Temp 98.1 98.1 98.1 Pulse 91 77 87 Resp 20 20 33 34 B/P (MAP) 113/59 113/55 (74) 122/58 (79) Pulse Ox 91 97 94 O2 Flow Rate 2.0 2.0 11/28/24 09:45 Temp 98.1 Pulse 82 Resp 20 B/P (MAP) 120/54 (76) Pulse Ox 96 O2 Flow Rate 2.0 Laboratory Tests Test 11/28/24 08:26 White Blood Count 7.6 Red Blood Count 3.69 L Hemoglobin 10.8 L Hematocrit 32.8 L Mean Corpuscular Volume 88.9 Mean Corpuscular Hemoglobin 29.4 Mean Corpuscular Hemoglobin Concent 33.1 Red Cell Distribution Width 16.4 H Platelet Count 131 L Mean Platelet Volume 7.5 Neutrophils (%) (Auto) 86.8 H Lymphocytes (%) (Auto) 4.6 L Monocytes (%) (Auto) 8.3 Eosinophils (%) (Auto) 0 Basophils (%) (Auto) 0.3 Neutrophils # (Auto) 6.6 Lymphocytes # (Auto) 0.3 L Monocytes # (Auto) 0.6 Eosinophils # (Auto) 0.0 Basophils # (Auto) 0.0 CBC Comment Sodium Level 150 H Potassium Level 3.4 L Chloride Level 112 H Carbon Dioxide Level 26.3 Anion Gap 12 Blood Urea Nitrogen 22 H Creatinine 1.18 H Estimated GFR/1.73 m2 59 BUN/Creatinine Ratio 18.6 Glucose Level 115 H Calcium Level 7.8 L Total Bilirubin 0.7 Aspartate Amino Transf (AST/SGOT) 18 Alanine Aminotransferase (ALT/SGPT) 25 Alkaline Phosphatase 69 Troponin I High Sensitivity 372 *H Total Protein 6.5 Albumin 3.3 L Globulin 3.2 Albumin/Globulin Ratio 1.0 L Chemistry Comments Departure Disposition: ADMITTED INPATIENT Admitted to Inpatient Unit: to hospitalist Impression: Primary Impression: Pneumonia Additional Impression: NSTEMI (non-ST elevated myocardial infarction) Condition: Guarded Referrals: NO PRIMARY CARE PROVIDER (PCP) Signature Scribe Signature: No scribe Attestation: No scribe KAILASH MEYERS MD Dec 01, 2024 03:39
--- NOTE | 2024-12-01 03:42 | Physician Documentation ---
History of Present Illness ~ Chief Complaint: Shortness of Breath Stated Complaint: XFER Mode of Arrival: Air Transport HPI 1030p.m.: Roma monreal was called again. I arrived to find CPR in progress and mechanical ventilation. One epi had been pushed prior to or my arrival. Patient became pulseless again and was in PA. A 2nd and 3rd amp of epi was pushed. A weak pulse was obtained. The daughter who has medical power of bone crusher is present and who is also critical care nurse decided that resuscitation efforts should be discontinued. I explained to her that a good outcome was not possible given his medical condition. Morphine 4 mg IV was pushed at 08/07/2040 and resuscitation efforts were then discontinued. Family is at bedside. Time of was 11:15 p.m.. Medication Reconciliation Allergies: Coded Allergies: No Known Allergies (Unverified , 11/28/24) Scheduled Apixaban (Eliquis), 1 TAB PO BID, (Reported) Bisoprolol Fumarate (Bisoprolol Fumarate), 0.5 TAB PO DAILY, (Reported) Bumetanide (Bumetanide), 1 TAB PO DAILY, (Reported) Gabapentin (Neurontin), 1 CAP PO HS, (Reported) Levothyroxine Sodium (Levothyroxine), 0.5 CAP PO DAILY, (Reported) Spironolactone (Spironolactone), 0.5 TAB PO DAILY, (Reported) [mintazapine], 30 MG PO DAILY, (Reported) Past Medical History Past Medical History: Congestive Heart Failure Smoking Status: Former smoker Physical Exam Vital Signs: Temperature: 97.5, Source: Oral, Heart Rate: 109, Respiratory Rate: 22, BP: 118/61, Pulse Oximetry: 94, Weight: 68.150 Oxygen Flow Rate: 0.0 Procedures Intubation Intubation Time: 2205 Endotracheal Tube Size: 8.0 ETT Confirmation: Ascultation, CO2 Detector, Direct Visualization, Condensation in ETT Progress Results/Orders Results/Orders Vital Signs 11/28/24 11/28/24 11/28/24 11/28/24 07:01 07:12 07:59 08:49 Temp 98.1 98.1 98.1 Pulse 91 77 87 Resp 20 20 33 34 B/P (MAP) 113/59 113/55 (74) 122/58 (79) Pulse Ox 91 97 94 O2 Flow Rate 2.0 2.0 11/28/24 09:45 Temp 98.1 Pulse 82 Resp 20 B/P (MAP) 120/54 (76) Pulse Ox 96 O2 Flow Rate 2.0 Laboratory Tests Test 11/28/24 08:26 White Blood Count 7.6 Red Blood Count 3.69 L Hemoglobin 10.8 L Hematocrit 32.8 L Mean Corpuscular Volume 88.9 Mean Corpuscular Hemoglobin 29.4 Mean Corpuscular Hemoglobin Concent 33.1 Red Cell Distribution Width 16.4 H Platelet Count 131 L Mean Platelet Volume 7.5 Neutrophils (%) (Auto) 86.8 H Lymphocytes (%) (Auto) 4.6 L Monocytes (%) (Auto) 8.3 Eosinophils (%) (Auto) 0 Basophils (%) (Auto) 0.3 Neutrophils # (Auto) 6.6 Lymphocytes # (Auto) 0.3 L Monocytes # (Auto) 0.6 Eosinophils # (Auto) 0.0 Basophils # (Auto) 0.0 CBC Comment Sodium Level 150 H Potassium Level 3.4 L Chloride Level 112 H Carbon Dioxide Level 26.3 Anion Gap 12 Blood Urea Nitrogen 22 H Creatinine 1.18 H Estimated GFR/1.73 m2 59 BUN/Creatinine Ratio 18.6 Glucose Level 115 H Calcium Level 7.8 L Total Bilirubin 0.7 Aspartate Amino Transf (AST/SGOT) 18 Alanine Aminotransferase (ALT/SGPT) 25 Alkaline Phosphatase 69 Troponin I High Sensitivity 372 *H Total Protein 6.5 Albumin 3.3 L Globulin 3.2 Albumin/Globulin Ratio 1.0 L Chemistry Comments Departure Disposition: ADMITTED INPATIENT Admitted to Inpatient Unit: to hospitalist Impression: Primary Impression: Pneumonia Additional Impression: NSTEMI (non-ST elevated myocardial infarction) Condition: Guarded Referrals: NO PRIMARY CARE PROVIDER (PCP) Signature Scribe Signature: No scribe Attestation: No scribe KAILASH MEYERS MD Dec 01, 2024 03:42
== END 2024-12-01 00:46 | DRG 871 ==
LOC: ER 06:50 → ED HOLD 09:47 → PCU 3S 16:33 → CICU 2S 11-30 22:21
PROVIDERS: ADMIT Family Medicine; ATTEND Family Medicine
PROC: BW251ZZ Computerized Tomography (CT Scan) of Chest, Abdomen and Pelvis using Low Osmolar Contrast (ICD-10-PCS; 2024-11-28)
PROC: 5A0935A Assistance with Respiratory Ventilation, Less than 24 Consecutive Hours, High Flow/Velocity Cannula (ICD-10-PCS; 2024-11-29)
PROC: 5A12012 Performance of Cardiac Output, Single, Manual (ICD-10-PCS; principal; 2024-12-01)
PROC: 0BH17EZ Insertion of Endotracheal Airway into Trachea, Via Natural or Artificial Opening (ICD-10-PCS; 2024-12-01)
DX: A41.9 Sepsis, unspecified organism (principal); I21.A1 Myocardial infarction type 2; I33.0 Acute and subacute infective endocarditis; J69.0 Pneumonitis due to inhalation of food and vomit; I50.23 Acute on chronic systolic (congestive) heart failure; J96.01 Acute respiratory failure with hypoxia; J44.0 Chronic obstructive pulmonary disease with (acute) lower respiratory infection; I48.91 Unspecified atrial fibrillation; E03.9 Hypothyroidism, unspecified; I25.10 Atherosclerotic heart disease of native coronary artery without angina pectoris; I34.0 Nonrheumatic mitral (valve) insufficiency; F32.A Depression, unspecified; Z87.891 Personal history of nicotine dependence; Z85.118 Personal history of other malignant neoplasm of bronchus and lung; Z85.46 Personal history of malignant neoplasm of prostate; Z92.3 Personal history of irradiation; Z87.01 Personal history of pneumonia (recurrent); Z95.2 Presence of prosthetic heart valve
CPT/HCPCS: 36415; 36600; 71045; 71250; 74176; 80053; 80061; 81001; 82803; 82948; 83036; 83605; 83735; 83880; 84132; 84484; 85018; 85025; 85610; 85730; 87040; 87070; 87081; 92950; 93005; 93306; 94002; 94640; 94664; 94760; 96374; 99291; A4615; A6212; A6213; A6590; C1751; C1758; G0378; J0456; J0696; J1644; J1940; J2919; J3480; J7040; J7042